=== PATIENT | female | born 1985 | race Caucasian/White ===

== ENCOUNTER 2016-08-29 09:46 | Inpatient (IN) | payer MEDICAID ==
[~2016-08-29] VITALS: Ht 152.4 cm; Wt 77.3 kg
[~2016-08-29 09:46] MED LIST: OXYM30MI NASAL; PHEN-651 PO
[2016-08-29] MEDS ORDERED: METHYLERGONOVINE 0.2 MG INJ IM PRN ×2 (10:00→15:30)
[2016-08-29] MEDS ORDERED: MISOPROSTOL 200 MCG TAB PR PRN ×2 (10:00→15:30)
[2016-08-29] MEDS ORDERED: OXYTOCIN 30 UNITS/LR 500 ML IV PRN ×2 (10:00→15:30)
[2016-08-29] MEDS ORDERED: CARBOPROST 250 MCG INJ IM PRN ×2 (10:00→15:30)
[2016-08-29] MEDS ORDERED: CEFAZOLIN 2 GM/50 ML (PMX) 50 ML IV SCH (10:00)
[2016-08-29] MEDS ORDERED: OXYTOCIN 30 UNITS/LR 500 ML IV SCH (10:00)
[2016-08-29 10:14] LABS: ADD SCAN DIFF NO
[2016-08-29 10:19] VITALS: Ht 152.4 cm; Wt 77.3 kg
[2016-08-29 10:20] VITALS: BP 125/84; PULSE 78; RESP 18
[2016-08-29 10:20] LABS: BASOPHILS % 0.3 % (0.0-2.0); EOSINOPHILS # 0.1 10^3/ul (0.0-0.5); EOSINOPHILS % 0.7 % (0.0-7.0); HEMATOCRIT 33.2 % (37.0-47.0); HEMOGLOBIN 10.5 g/dl (12.0-16.0); LYMPHOCYTES # 3.3 10^3/ul (0.8-2.9); LYMPHOCYTES % 30.6 % (15.0-51.0); MEAN CORPUSCULAR HEMOGLOBIN 27.1 pg (29.0-33.0); MEAN CORPUSCULAR HGB CONC 31.6 g/dl (32.0-37.0); MEAN CORPUSCULAR VOLUME 85.8 fl (82.0-101.0); MEAN PLATELET VOLUME 10.8 fl (7.4-10.4); MONOCYTE # 0.8 10^3/ul (0.3-0.9); MONOCYTES % 7.2 % (0.0-11.0); NEUTROPHIL # 6.5 10^3/ul (1.6-7.5); NEUTROPHILS % 60.7 % (39.0-77.0); PLATELET COUNT 250 10^3/UL (140-415); RED BLOOD COUNT 3.87 10^6/ul (4.20-5.40); RED CELL DISTRIBUTION WIDTH 14.6 % (11.5-14.5); WHITE BLOOD COUNT 10.7 10^3/ul (4.8-10.8)
[2016-08-29] MEDS: LACTATED RINGER'S 1,000 ML IV SCH ×3 (10:33→15:09)
[2016-08-29 10:38] LABS: INR 0.95; PROTIME 12.7 Sec (12.2-14.2)
--- NOTE | 2016-08-29 10:50 | HP ---
Date/Time of Note Date/Time of Note DATE: 08/29/16 TIME: 10:49 OB - History Hx of Present Free Text/Dictation term preg. with previous c/s admitted for bleeding and contractions Care: Good Care Ultrasounds: Normal mid trimester US Obstetrical Complications: None Medical Complications: None Past Family/Social History * Past Medical, Surgical, Family and Obstetric Histories reviewed from chart. OB Admission Exam Vital Signs Vital Signs Vital Signs Date Time Temp Pulse Resp B/P Pulse Ox O2 Delivery O2 Flow Rate FiO2 08/29/16 10:20 98.0 78 18 125/84 98 Room Air Physical Exam HEENT: WNL Heart: Rhythm Normal Lungs: Clear, Equal Abdomen: WNL Extremities: Normal Reflexes: Normal Membranes: Intact Accelerations: Accelerations Present Decelerations: No Decelerations Contractions on Admission: 6-10 Minutes Apart Last 72 hours Lab Results CBC & BMP 08/29/16 10:00 OB Assessment/Plan Reason for admission: section Plan: Section RENE CROWE MD Aug 29, 2016 10:50
--- NOTE | 2016-08-29 10:58 | OPR ---
Operative Report Planned Procedure Procedure date Aug 29, 2016 Performed by: RENE CROWE MD Assisting provider: FOREST IBARRA M.D. Anesthesia Type: spinal Procedure Description Under satisfactory spinal anesthesia, the patient was prepped and draped and placed in a supine position, tilted to the left. Pfannenstiel incision was made , carried through the subcutaneous tissue. Bleeders brought under control with electrocautery. Fascia incised to the length of the incision. Rectus muscles from the fascia, divided midline. Peritoneum exposed, entered through a transverse incision. Exploration of abdomen revealed gravid uterus. Bladder flap was developed. Transverse incision was made in the lower segment of the uterus. Amniotic sac ruptured. [] amniotic fluid noted. [] Nasal oropharyngeal suction was performed. The baby was handed to the team for immediate attention. The placenta was delivered manually intact. Uterine cavity was cleaned with wet sponge and drainage established. Uterus closed in 2 layers using one monocryl in continuous fashion. Peritoneal cavity irrigated with warm saline. Sponge, needle and instrument count reported to be correct. Abdominal peritoneum closed with [] continuously. the right tube was visualized and one plain tie and cut with metzabmoun. . The left tube was tied with one plain and cut with metzambum. Rectus muscle approximated with []. Fascia closed with [ one monocryl], and skin closed with meseret. Estimated blood loss [700]mL. Urine bag contained []mL of urine Post-Procedure Findings: Live Baby [], Apgars [] and [], weight [], position [], [] presentation []cord. Specimen removed: No Complications: None Pt Condition post procedure: stable Physician Certification I, the undersigned physician, hereby certify that I have discussed the procedure described in this consent form with this patient (or the patient's legal termite control representative), including: * The risk and benefits of the procedure; * Any adverse reactions that may reasonably be expected to occur; * Any alternative efficacious methods of treatment which may be medically viable ; * The potential problems that may occur during recuperation; * Potential for blood transfusion and associated risks/benefits; and * Any research or economic interest I may have regarding this treatment. I further certify that the patient/legally responsible person was encouraged to ask question and that all questions were answered. RENE CROWE MD Aug 29, 2016 10:58
[2016-08-29] MEDS ORDERED: METOCLOPRAMIDE 10 MG INJ ONE (11:37)
[2016-08-29] MEDS ORDERED: OXYTOCIN 30 UNITS/LR 500 ML IV ONE (11:37)
[2016-08-29] MEDS ORDERED: morphine SULFATE/PF (10 MG/10 ML) INJ ONE (11:37)
[2016-08-29] MEDS ORDERED: ONDANSETRON 4 MG INJ ONE (11:37)
[2016-08-29] MEDS ORDERED: OXYTOCIN 10 UNIT INJ ONE (11:37)
[2016-08-29] MEDS ORDERED: EPHEDrine SULFATE 50 MG/5 ML SYG ONE (11:37)
[2016-08-29 15:30] VITALS: BP 121/75; PULSE 91; RESP 18
[2016-08-29] MEDS ORDERED: LANOLIN 7 GM TUBE TOP PRN (15:30)
[2016-08-29] MEDS: OXYTOCIN 30 UNITS/LR 500 ML IV SCH ×2 (15:30→19:56)
[2016-08-29] MEDS ORDERED: NACL 0.9% 3 ML SYG IV SCH (15:30)
[2016-08-29] MEDS ORDERED: ACETAMINOPHEN/CODEINE #3 TAB PO PRN (15:30)
[2016-08-29] MEDS ORDERED: NA PHOSPHATE/BIPHOS 133 ML ENEMA PR PRN (15:30)
[2016-08-29] MEDS ORDERED: morphine SULFATE/PF (10 MG/10 ML) INJ SPINAL ONE (16:00)
[2016-08-29] MEDS ORDERED: HYDROmorphONE 1 MG/ML SYG IV PRN ×2 (16:00)
[2016-08-29] MEDS ORDERED: morphine 2 MG INJ IV PRN ×2 (16:00)
[2016-08-29] MEDS ORDERED: DIPHENHYDRAMINE 50 MG INJ IV PRN (16:00)
[2016-08-29] MEDS ORDERED: NALOXONE (0.4 MG/ML) INJ IV PRN (16:00)
[2016-08-29] MEDS ORDERED: EPHEDrine SULFATE 50 MG/5 ML SYG IV PRN (16:00)
[2016-08-29] MEDS ORDERED: KETOROLAC 30 MG INJ IV PRN (16:00)
[2016-08-29] MEDS ORDERED: ONDANSETRON 4 MG INJ IV PRN (16:00)
[2016-08-29 16:30] VITALS: BP 120/72; PULSE 94; RESP 18
[2016-08-29 17:30] VITALS: BP 124/68; PULSE 91; RESP 18
[2016-08-29 20:37] VITALS: BP 114/78; PULSE 88; RESP 18
[2016-08-30 00:30] VITALS: BP 112/63; PULSE 76; RESP 18
[2016-08-30] MEDS: LACTATED RINGER'S 1,000 ML IV SCH ×2 (04:03→07:09)
[2016-08-30 05:50] VITALS: BP 101/64; PULSE 77; RESP 18
[2016-08-30 08:00] VITALS: BP 104/66; PULSE 76; RESP 18
[2016-08-30] MEDS: IBUPROFEN 800 MG TAB PO SCH ×2 (13:02→21:31)
[2016-08-30 16:00] VITALS: BP 112/70; PULSE 82; RESP 18
[2016-08-30 20:15] VITALS: BP 119/79; PULSE 87; RESP 18
[2016-08-31] MEDS: OXYCODONE/ACETAMINOPHEN (5/325) TAB PO PRN (00:09)
[2016-08-31 04:39] VITALS: BP 106/71; PULSE 67; RESP 18
[2016-08-31] MEDS: IBUPROFEN 800 MG TAB PO SCH ×3 (06:06→22:16)
[2016-08-31 08:00] VITALS: BP 124/79; PULSE 80; RESP 18
--- NOTE | 2016-08-31 10:38 | PN ---
Date/Time of Note Date/Time of Note DATE: 08/31/16 TIME: 10:34 OB Subjective Subjective Subjective Post C Section day 2 Patient is doing well, Ambulatory She is afebrile Abdomen is soft , Fundus is firm Incision is clean Moderate amount of lochia Breasts are soft, Nipples are intact No calf tenderness. No ankle edema Breast feeding the new born. New born is doing well Current Medications Medications (Trade) Dose Ordered Sig/Joe Route PRN Reason Start Time Stop Time Status Last Admin Dose Admin Lactated Ringer's 1,000 ml @ 125 mls/hr Q8H IV 08/29/16 09:58 08/29/16 15:12 DC 08/29/16 10:54 Cefazolin Sodium/ Dextrose 50 ml @ 100 mls/hr ONCE IV 08/29/16 10:00 08/29/16 15:12 DC Oxytocin/Lactated Ringer's 500 ml @ 125 mls/hr ONCE IV 08/29/16 10:00 08/29/16 15:12 DC Oxytocin/Lactated Ringer's 500 ml @ 0 mls/hr ONCE PRN IV For Hemorrhage Management 08/29/16 10:00 08/29/16 15:12 DC 08/29/16 12:30 Methylergonovine Maleate (Methergine) 0.2 mg ONCE PRN IM VAGINAL BLEEDING 08/29/16 10:00 08/29/16 15:12 DC Carboprost Tromethamine (Hemabate) 250 mcg ONCE PRN IM VAGINAL BLEEDING 08/29/16 10:00 08/29/16 15:12 DC Misoprostol (Cytotec) 1,000 mcg ONCE PRN [place] VAGINAL BLEEDING 08/29/16 10:00 08/29/16 15:12 DC Ephedrine Sulfate 50 mg 50 mg STK-MED ONCE .ROUTE 08/29/16 11:37 08/29/16 11:38 DC Oxytocin/Lactated Ringer's 500 ml @ ud STK-MED ONCE IV 08/29/16 11:37 08/29/16 11:38 DC Morphine Sulfate (Duramorph) 10 mg STK-MED ONCE .ROUTE 08/29/16 11:37 08/29/16 11:38 DC Ondansetron HCl (Zofran Inj) 4 mg STK-MED ONCE .ROUTE 08/29/16 11:37 08/29/16 11:38 DC Metoclopramide HCl (Reglan) 10 mg STK-MED ONCE .ROUTE 08/29/16 11:37 08/29/16 11:38 DC Oxytocin 10 units 10 units STK-MED ONCE .ROUTE 08/29/16 11:37 08/29/16 11:38 DC Lactated Ringer's (Lr) 1,000 ml @ 125 mls/hr Q8H IV 08/29/16 15:09 08/30/16 14:25 DC 08/30/16 04:03 IV Flush 3 ml 3 ml PER PROTOCOL IV 08/29/16 15:30 Oxytocin/Lactated Ringer's 500 ml @ 125 mls/hr Q4H IV 08/29/16 15:09 08/29/16 23:08 DC 08/29/16 19:56 Acetaminophen/ Codeine Phosphate (Tylenol No.3) 2 tab Q4H PRN PO PAIN LEVEL 7-10 08/29/16 15:30 Oxycodone/ Acetaminophen (Percocet (5/ 325)) 2 tab Q4H PRN PO PAIN LEVEL 7-10 08/29/16 15:30 08/31/16 00:09 Ibuprofen (Motrin) 800 mg Q8 PO 08/30/16 14:00 08/31/16 06:06 Simethicone (Mylicon) 160 mg Q8H PRN PO DISTENSION/GAS/BLOATING 08/29/16 15:30 Sodium Biphosphate/ Sodium Phosphate (Fleet Enema) 133 ml DAILY PRN [place] CONSTIPATION 08/29/16 15:30 Lanolin (Iye-R-Atykxp) 1 applic BEDSIDE MEDICATION PRN TOP BEDSIDE FOR [place] TO NIPPLES 08/29/16 15:30 08/31/16 08:07 Diphtheria/ Tetanus/Acell Pertussis (Adacel) 0.5 ml ONCE ONCE IM* 09/01/16 09:00 09/01/16 09:01 Measles/Mumps/ Rubella Vaccine Live 0.5 ml 0.5 ml ONCE ONCE SC* 09/01/16 09:00 09/01/16 09:01 Oxytocin/Lactated Ringer's 500 ml @ 0 mls/hr ONCE PRN IV For Hemorrhage Management 08/29/16 15:30 08/29/16 23:57 Methylergonovine Maleate (Methergine) 0.2 mg ONCE PRN IM VAGINAL BLEEDING 08/29/16 15:30 Carboprost Tromethamine (Hemabate) 250 mcg ONCE PRN IM VAGINAL BLEEDING 08/29/16 15:30 Misoprostol (Cytotec) 1,000 mcg ONCE PRN [place] VAGINAL BLEEDING 08/29/16 15:30 Naloxone HCl (Narcan) 0.1 mg Q2M PRN IV FOR RESP RATE 8 OR LESS 08/29/16 16:00 08/30/16 15:59 DC Ketorolac Tromethamine (Toradol) 30 mg Q6H PRN IV PAIN 08/29/16 16:00 08/30/16 15:59 DC Morphine Sulfate (morphine) 2 mg Q3H PRN IV PAIN LEVEL 1-5 08/29/16 16:00 08/30/16 15:59 DC Morphine Sulfate (morphine) 4 mg Q3H PRN IV PAIN LEVEL 6-10 08/29/16 16:00 08/30/16 15:59 DC Hydromorphone HCl (Dilaudid) 0.2 mg Q3H PRN IV PAIN LEVEL 1-5 08/29/16 16:00 08/30/16 15:59 DC Hydromorphone HCl (Dilaudid) 0.4 mg Q3H PRN IV PAIN LEVEL 6-10 08/29/16 16:00 08/30/16 15:59 DC Diphenhydramine HCl (Benadryl) 25 mg Q6H PRN IV ITCHING 08/29/16 16:00 08/30/16 15:59 DC Ondansetron HCl (Zofran Inj) 4 mg Q6H PRN IV NAUSEA AND/OR VOMITING 08/29/16 16:00 08/30/16 15:59 DC Morphine Sulfate (Duramorph) 0.3 mg GIVEN ANESTH ONCE SPINAL 08/29/16 16:00 08/29/16 16:01 DC Ephedrine Sulfate 5 mg [id number] PRN IV BLOOD PRESSURE SUPPORT 08/29/16 16:00 Mother and new born should be ready for discharge in AM WARD MCCANN MD Aug 31, 2016 10:38
[2016-08-31 15:19] LABS: ABNORMAL IP MESSAGE 1; MEAN CORPUSCULAR HEMOGLOBIN 27.9 pg (29.0-33.0); MEAN CORPUSCULAR HGB CONC 31.4 g/dl (32.0-37.0); MEAN CORPUSCULAR VOLUME 89.1 fl (82.0-101.0); MEAN PLATELET VOLUME 11.1 fl (7.4-10.4); PLATELET COUNT 231 10^3/UL (140-415); RED BLOOD COUNT 2.47 10^6/ul (4.20-5.40); RED CELL DISTRIBUTION WIDTH 15.1 % (11.5-14.5); WHITE BLOOD COUNT 11.5 10^3/ul (4.8-10.8)
[2016-08-31 15:58] LABS: ADD SCAN DIFF YES; HEMOGLOBIN 6.9 g/dl (12.0-16.0)
[2016-08-31 16:00] VITALS: BP 104/58; PULSE 88; RESP 18
[2016-08-31] MEDS: FERROUS SULFATE (EC) 325 MG TAB PO SCH (17:04)
[2016-08-31 17:21] LABS: LYMPHOCYTES # 2.8 10^3/ul (0.8-2.9); MONOCYTE # 0.8 10^3/ul (0.3-0.9); NEUTROPHIL # 7.9 10^3/ul (1.6-7.5)
[2016-08-31 19:55] VITALS: BP 114/68; PULSE 98; RESP 16
[2016-09-01] VITALS: BP 114/74; PULSE 96; RESP 18
[2016-09-01] MEDS: FERROUS SULFATE (EC) 325 MG TAB PO SCH ×2 (00:25→09:38)
[2016-09-01] MEDS: OXYCODONE/ACETAMINOPHEN (5/325) TAB PO PRN (00:43)
[2016-09-01 04:15] VITALS: BP 119/74; PULSE 75; RESP 18
[2016-09-01] MEDS: IBUPROFEN 800 MG TAB PO SCH ×2 (06:01→13:37)
[2016-09-01 08:00] VITALS: BP 120/73; PULSE 91; RESP 18
[2016-09-01 08:04] LABS: ADD SCAN DIFF NO
[2016-09-01 08:08] LABS: ABNORMAL IP MESSAGE 1; HEMATOCRIT 21.7 % (37.0-47.0); MEAN CORPUSCULAR HEMOGLOBIN 27.3 pg (29.0-33.0); MEAN CORPUSCULAR HGB CONC 30.4 g/dl (32.0-37.0); MEAN CORPUSCULAR VOLUME 89.7 fl (82.0-101.0); MEAN PLATELET VOLUME 10.5 fl (7.4-10.4); PLATELET COUNT 218 10^3/UL (140-415); RED BLOOD COUNT 2.42 10^6/ul (4.20-5.40); RED CELL DISTRIBUTION WIDTH 15.2 % (11.5-14.5); WHITE BLOOD COUNT 8.7 10^3/ul (4.8-10.8)
[2016-09-01 08:22] LABS: HEMOGLOBIN 6.6 g/dl (12.0-16.0)
[2016-09-01] MEDS ORDERED: MEASLES,MUMPS,RUBELLA VACCINE INJ SC* ONE (09:00)
[2016-09-01] MEDS ORDERED: DIPHTH/TET/ACEL PERTUSS (ADULT) 0.5 ML VIAL IM* ONE (09:00)
[2016-09-01 11:21] LABS: EOSINOPHILS # 0.2 10^3/ul (0.0-0.5); LYMPHOCYTES # 2.3 10^3/ul (0.8-2.9); MONOCYTE # 0.3 10^3/ul (0.3-0.9); NEUTROPHIL # 5.6 10^3/ul (1.6-7.5)
[2016-09-01] MEDS ORDERED: ACET1TAB40 PO (14:25)
[2016-09-01] MEDS ORDERED: DOCU-144 PO (14:26)
--- NOTE | 2016-09-01 17:59 | PN ---
Date/Time of Note Date/Time of Note DATE: 09/01/16 TIME: 17:56 OB Subjective Subjective Subjective Patient denies any dizziness, lightheadedness, shortness of breath or chest pain. She is ambulating and comfortable without any symptom. Vaginal bleeding moderate. She is breast-feeding. She passed flatus. She denies any complaint. Pain well controlled with p.o. pain medication. OB Objective Objective Objective General appearance: Alert and oriented 4 patient does not appear to be in any acute distress. Abdomen: Soft, appropriate tenderness in the incision. Incision, clean dry and intact. No evidence of hematoma, drainage or wound dehiscence or erythema. Breasts: No evidence of engorgement, erythema, fissure. Extremities: No calf tenderness, no click, 2+ bilateral symmetric edema. No cords palpable, negative Homans sign Hematology - 72 Hrs Test 08/31/16 11:20 09/01/16 07:32 White Blood Count 11.510^3/ul (4.8-10.8) H 8.710^3/ul (4.8-10.8) # Red Blood Count 2.4710^6/ul (4.20-5.40) #L 2.4210^6/ul (4.20-5.40) L Hemoglobin 6.9g/dl (12.0-16.0) 6.6g/dl (12.0-16.0) *L Hematocrit 22.0% (37.0-47.0) #L 21.7% (37.0-47.0) L Mean Corpuscular Volume 89.1fl (82.0-101.0) 89.7fl (82.0-101.0) Mean Corpuscular Hemoglobin 27.9pg (29.0-33.0) L 27.3pg (29.0-33.0) L Mean Corpuscular Hemoglobin Concent 31.4g/dl (32.0-37.0) L 30.4g/dl (32.0-37.0) L Red Cell Distribution Width 15.1% (11.5-14.5) H 15.2% (11.5-14.5) H Platelet Count 85180^3/UL (140-415) 02214^3/UL (140-415) Mean Platelet Volume 11.1fl (7.4-10.4) H 10.5fl (7.4-10.4) H Neutrophils % 69.0% (39.0-77.0) 64.0% (39.0-77.0) Lymphocytes % 24.0% (15.0-51.0) 27.0% (15.0-51.0) Monocytes % 7.0% (0.0-11.0) 3.0% (0.0-11.0) Neutrophils # 7.910^3/ul (1.6-7.5) H 5.610^3/ul (1.6-7.5) Lymphocytes # 2.810^3/ul (0.8-2.9) 2.310^3/ul (0.8-2.9) Monocytes # 0.810^3/ul (0.3-0.9) 0.310^3/ul (0.3-0.9) Band Neutrophils % 2.0% (0.0-5.0) Eosinophils % 2.0% (0.0-7.0) Metamyelocytes % 2.0% (0.0-0.0) H Eosinophils # 0.210^3/ul (0.0-0.5) Metamyelocytes # 0.2 Differential Comment MANUAL DIFF OB Assessment/Plan Other Assessment: Postoperative day #3 Status post repeat Postop anemia. Hemoglobin currently stable and patient is asymptomatic. She is not tachycardic. She denies any symptoms with ambulation. She is hemodynamically stable enough to be discharged home. She had adequate urine output. Her vitals are stable. She is afebrile. She was advised to take iron twice a day with a stool softener with a follow-up with her OB clinic in a couple days after discharge as well as 2 weeks and 6 weeks . HERNANDEZ BREWER MD Sep 01, 2016 17:59
--- NOTE | 2016-09-01 18:01 | DS ---
Date/Time of Note Date/Time of Note DATE: 09/01/16 TIME: 17:59 Discharge Summary Admission/Discharge Info Admit Date/Time Aug 29, 2016 at 09:46 Discharge Date/Time Sep 01, 2016 at 15:50 Final Diagnosis Anemia, postop Prior section admitted with contractions and labor status post repeat section, Patient Condition: Good Consults MANAGER MONEY Procedures Repeat section via Pfannenstiel skin incision Hx of Present Illness 30-year-old female with history of section presented in labor at term and she underwent repeat section. Her Intra-Op course was uncomplicated however her postoperative course was complicated by postop anemia likely secondary to an estimated blood loss. She was however asymptomatic. She was ambulating without any symptom. She denied any dizziness, shortness of breath, chest pain or any other complaint. Her vitals were stable. On postoperative day #3 patient was noted to be hemodynamically stable to be discharged home. She was advised to take iron twice a day with a stool softener Follow-up in 2-3 days as well as 2 weeks and 6 weeks recommended with her OB clinic. Hospital Course Complicated by postop anemia Home Meds Reported Medications Docusate Sodium* (Colace*) 100 Mg Capsule, 100 MG PO DAILY for 7 Days, #7 CAP 09/01/16 Acetaminophen with Codeine (Acetaminophen-Cod #3 Tablet) 1 Each Tablet, 1 TAB PO Q4 Y for PAIN, #20 TAB 09/01/16 Discontinued Scripts Oxymetazoline Hcl (Nasal [place]) 30 Ml Mist, 2 SPRAYS NASAL BID, #1 BOTTLE Prov:JALEEL SAMANIEGO [employer]OR [employer] 09/20/15 Phenylephrine HCl/Acetaminophn (Sudafed PE Pressure+Pain Cplt) 1 Each Tablet, 1 EACH PO Q8 Y for congestion, #10 TAB Prov:JALEEL SAMANIEGO NP 09/20/15 Follow-up Plan in 2 days and 2 and 6 weeks post op with her Ob clinic Pending Labs Laboratory Tests Test 09/01/16 07:32 White Blood Count 8.710^3/ul (4.8-10.8) Red Blood Count 2.4210^6/ul (4.20-5.40) Hemoglobin 6.6g/dl (12.0-16.0) Hematocrit 21.7% (37.0-47.0) Mean Corpuscular Volume 89.7fl (82.0-101.0) Mean Corpuscular Hemoglobin 27.3pg (29.0-33.0) Mean Corpuscular Hemoglobin Concent 30.4g/dl (32.0-37.0) Red Cell Distribution Width 15.2% (11.5-14.5) Platelet Count 33394^3/UL (140-415) Mean Platelet Volume 10.5fl (7.4-10.4) Neutrophils % 64.0% (39.0-77.0) Band Neutrophils % 2.0% (0.0-5.0) Lymphocytes % 27.0% (15.0-51.0) Monocytes % 3.0% (0.0-11.0) Eosinophils % 2.0% (0.0-7.0) Metamyelocytes % 2.0% (0.0-0.0) Neutrophils # 5.610^3/ul (1.6-7.5) Lymphocytes # 2.310^3/ul (0.8-2.9) Monocytes # 0.310^3/ul (0.3-0.9) Eosinophils # 0.210^3/ul (0.0-0.5) Metamyelocytes # 0.2 Differential Comment MANUAL DIFF HERNANDEZ BREWER MD Sep 01, 2016 18:01
== END 2016-09-01 15:50 | disposition home or self-care (01) | DRG 766 ==
LOC: L-D 09:46 → PP1 15:18
PROVIDERS: ADMIT Obstetrics & Gynecology; ATTEND Obstetrics & Gynecology
PROC: 0UL70ZZ Occlusion of Bilateral Fallopian Tubes, Open Approach (ICD-10-PCS; 2016-08-29)
PROC: 10D00Z1 Extraction of Products of Conception, Low, Open Approach (ICD-10-PCS; principal; 2016-08-29 11:00)
PROC: 3E00X4Z Introduction of Serum, Toxoid and Vaccine into Skin and Mucous Membranes, External Approach (ICD-10-PCS; 2016-09-01)
DX: O34.211 Maternal care for low transverse scar from previous cesarean delivery (principal); O90.81 Anemia of the puerperium; Z3A.38 38 weeks gestation of pregnancy; Z30.2 Encounter for sterilization; Z37.0 Single live birth; Z23 Encounter for immunization
CPT/HCPCS: 85025; 85610; 85730; 86592; 86850; 86900; 86901; 87340; 88302; 90715; 94760; 99464; J0690; J2274; J2405; J2590; J2765; J7120